=== PATIENT | male | born 1945 | race Caucasian/White ===

== ENCOUNTER 2021-04-24 12:06 | Emergency (ER) | payer MEDICARE ==
[~2021-04-24] VITALS: Ht 170.2 cm; Wt 94.5 kg
[2021-04-24 12:43] VITALS: BP 147/82
--- NOTE | 2021-04-24 14:11 | NUR ---
PT AMBULATORY TO ROOM 8. PT STATES HE IS HERE FOR A REFILL OF OXYCODONE 10/325 MG Q4H. PT STATES [facility] IS OUT OF HIS MEDICATION AND TODAY IS HIS REFILL DATE AND WAS TOLD BY TO COME TO ED FOR RX REFILL.
== END 2021-04-24 15:07 | disposition home or self-care (01) ==
LOC: ED 14:56
DX: I10 Essential (primary) hypertension (principal); Z76.0 Encounter for issue of repeat prescription
CPT/HCPCS: 99281